=== PATIENT | female | born 1980 | race Caucasian/White ===

== ENCOUNTER 2018-09-09 12:09 | Inpatient (IN) | payer OTHER | END 2018-09-10 16:05 | disposition short-term general hospital (02) | LOC: BBEH 23:35 ==

== ENCOUNTER 2018-09-10 12:37 | Inpatient (IN) | payer OTHER | END 2018-09-11 15:40 | LOC: F2N 16:42 ==

== ENCOUNTER 2018-09-11 15:50 | Inpatient (IN) | payer OTHER | END 2018-09-15 12:40 | disposition home or self-care (01) | LOC: BBEH 15:50 ==